=== PATIENT | female | born 1955 | race Caucasian/White ===

== ENCOUNTER 2024-12-29 09:51 | Emergency (ER) | payer OTHER ==
[~2024-12-29] VITALS: Ht 162.6 cm; Wt 82.6 kg
[2024-12-29 10:06] VITALS: BP 151/78; PULSE 71; RESP 18; TEMP 97.8; O2SAT 100
[2024-12-29 10:14] VITALS: BP 151/78; PULSE 71; RESP 18; TEMP 97.8; O2SAT 100
[2024-12-29 10:15] VITALS: BP 147/65; PULSE 59; RESP 17; TEMP 97.8; O2SAT 100
[2024-12-29 10:45] VITALS: BP 156/71; PULSE 60; RESP 16; TEMP 97.8; O2SAT 100
[2024-12-29 11:09] VITALS: BP 156/82; PULSE 56; RESP 19; TEMP 97.8; O2SAT 100
== END 2024-12-29 11:26 | disposition home or self-care (01) ==
LOC: ER 09:51
DX: S52.124A Nondisplaced fracture of head of right radius, initial encounter for closed fracture (principal); Z90.89 Acquired absence of other organs; W10.8XXA Fall (on) (from) other stairs and steps, initial encounter; Y93.01 Activity, walking, marching and hiking; Y92.89 Other specified places as the place of occurrence of the external cause; Y99.8 Other external cause status
CPT/HCPCS: 99283; 73070-RT